=== PATIENT | female | born 1960 | race Caucasian/White ===

== ENCOUNTER 2017-05-17 18:17 | Emergency (ER) | payer MEDICARE ==
[2017-05-17 18:56] LABS: #Eosinphils 0.6 thou/uL (0.0-0.7); #Lymphocytes 1.8 thou/uL (1.20-3.40); #Monocytes 1.2 thou/uL (0.11-0.59); %Basophils 0.5 % (0.0-1.0); %Eosinophils 5.6 % (0.0-10.0); %Lymphocytes 17.2 % (21.0-51.0); %Monocytes 10.8 % (0.0-10.0); %Neutrophils 65.9 % (42.0-75.0); Hemoglobin 14.1 g/dL (12.0-16.0); Mean Corpuscular HGB CONC 32.1 g/dL (32.0-36.0); Mean Corpuscular Hemoglobin 29.9 pg (27.0-31.0); Mean Corpuscular Volume 93.1 fl (81.0-99.0); Mean Platelet Volume 6.6 fL (7.4-10.4); Platelet Count 254 thou/uL (130-400); RBC Distribution Width 12.3 % (11.5-14.5); Red Blood Cell (RBC) Count 4.71 mill/uL (4.20-5.40); White Blood Cell (WBC) Count 10.6 thou/uL (4.8-10.8)
--- NOTE | 2017-05-17 19:04 | RAD ---
PA CHEST: 05/17/17 HISTORY: Chest pain. COMPARISON: 08/14/15. The lungs are clear. Vascular markings are normal. Heart and mediastinum unremarkable. Mckeon typ e rods with thoracic scoliosis again noted. IMPRESSION: No acute abnormality. POS: [facility]
[2017-05-17 19:17] LABS: ALT (SGPT) 18 U/L (8-55); AST (SGOT) 33 U/L (5-34); Albumin 3.8 g/dL (3.5-5.0); Alkaline Phosphatase 146 U/L (40-150); Anion Gap 12 mmol/L (10-20); BUN (Urea Nitrogen) 15 mg/dL (9.8-20.1); Bilirubin, Total 0.6 mg/dL (0.2-1.2); Calc. Creatinine Clearance 0 mL/min (70-130); Calcium 9.4 mg/dL (7.8-10.44); Carbon Dioxide 27 mmol/L (22-29); Chloride 104 mmol/L (98-107); Estimated GFR-MDRD 73; Globulin 2.8 g/dL (2.4-3.5); Glucose 100 mg/dL (70-105); Potassium 4.5 mmol/L (3.5-5.1); Protein, Total 6.6 g/dL (6.0-8.3); Sodium 138 mmol/L (136-145)
[2017-05-17 19:20] LABS: CKMB 0.3 ng/mL (0-6.6); Troponin I Less than 0.010 ng/mL (< 0.028)
== END 2017-05-17 20:19 | disposition home or self-care (01) ==
LOC: ERS 18:17
DX: R07.89 Other chest pain (principal); M32.9 Systemic lupus erythematosus, unspecified; I25.2 Old myocardial infarction; I25.10 Atherosclerotic heart disease of native coronary artery without angina pectoris; F41.9 Anxiety disorder, unspecified; Z79.82 Long term (current) use of aspirin; Z79.899 Other long term (current) drug therapy
CPT/HCPCS: 36415; 71045; 80053; 82553; 84484; 85025; 93005

== ENCOUNTER 2017-05-22 19:08 | Inpatient (IN) | payer MEDICARE ==
[2017-05-22] MEDS ORDERED: Ondansetron HCl/PF 4 MG/2 ML Vial ONE (20:15)
[2017-05-22 20:20] LABS: Hemoglobin 11.4 g/dL (12.0-16.0); Mean Corpuscular HGB CONC 32.5 g/dL (32.0-36.0); Mean Corpuscular Hemoglobin 29.8 pg (27.0-31.0); Mean Corpuscular Volume 91.6 fl (81.0-99.0); Mean Platelet Volume 6.1 fL (7.4-10.4); Platelet Count 181 thou/uL (130-400); RBC Distribution Width 12.1 % (11.5-14.5); Red Blood Cell (RBC) Count 3.83 mill/uL (4.20-5.40); White Blood Cell (WBC) Count 20.9 thou/uL (4.8-10.8)
[2017-05-22 20:28] LABS: INR-International Normal Ratio 1.4
[2017-05-22 20:35] LABS: Band 13 % (5-11); Lymphocytes 3 % (21-51); MDiff Complete? YES; Monocytes 2 % (0-10); Neutrophil 81 % (42-75); PLT Morphology Comment Appears Adequate; Polychromasia SLIGHT = 2-3 cells (100X) (0-2/hpf); Toxic Granulation SLIGHT; Vacuoles SLIGHT
[2017-05-22 20:47] LABS: ALT (SGPT) 81 U/L (8-55); AST (SGOT) 113 U/L (5-34); Albumin 3.2 g/dL (3.5-5.0); Alkaline Phosphatase 190 U/L (40-150); Anion Gap 9 mmol/L (10-20); BUN (Urea Nitrogen) 21 mg/dL (9.8-20.1); Bilirubin, Total 1.7 mg/dL (0.2-1.2); Calc. Creatinine Clearance 0 mL/min (70-130); Calcium 9.1 mg/dL (7.8-10.44); Carbon Dioxide 28 mmol/L (22-29); Chloride 104 mmol/L (98-107); Estimated GFR-MDRD 83; Globulin 2.9 g/dL (2.4-3.5); Glucose 124 mg/dL (70-105); Lipase 15 U/L (8-78); Potassium 3.6 mmol/L (3.5-5.1); Protein, Total 6.1 g/dL (6.0-8.3); Sodium 137 mmol/L (136-145)
--- NOTE | 2017-05-22 21:14 | CT ---
NONCONTRAST CT ABDOMEN AND PELVIS 05/22/17 HISTORY: Back pain. Patient recently diagnosed with kidney stones. Patient tripped over a dog at 2 a.m. today and has been on the floor since that time. COMPARISON: PET CT exam on 09/12/14. FINDINGS: There is incomplete visualization of a wedge shaped parenchymal density at the posterolateral left palmer ng base which could be related to atelectasis or focal area of pneumonia. Right lung base is clear. Postsurgical changes of the thoracolumbar spine are noted with a right sided karin transfixing the thor acic spine and an additional karin transfixing the thoracolumbar spine. Post cholecystectomy changes are noted. The liver, spleen, pancreas, bilateral adrenal glands, kidneys, and urinary bladder demonstrate a daryl ssly normal nonenhanced CT appearance. Lack of intravenous contrast does limit sensitivity for evalua tion of the parenchymal organs. No renal or ureteral calculi are seen bilaterally and there is no hydronephrosis. Calcifications are seen adjacent to the base of the urinary bladder which were also present on the prior study and are m ost consistent with phleboliths. There is evidence of hysterectomy. Minimal vascular calcifications are seen in within the iliac arteries bilaterally. The appendix is visualized and gas filled and normal in caliber. There has been no other interval change from the PET CT scan examination. IMPRESSION: 1. Incomplete visualization of wedge shaped parenchymal changes at the left lung base which may be related to either atelectasis or possibly pneumonia. Followup to resolution is recommended. 2. No acute findings are seen on this nonenhanced CT scan of the abdomen and pelvis. 3. No renal or ureteral calculi are seen bilaterally. 4. Postsurgical changes thoracolumbar spine with prominent S-shaped scoliotic curvature of the t horacolumbar spine. 5. Hysterectomy and cholecystectomy. POS: [facility]
[2017-05-22] MEDS ORDERED: Ketorolac Tromethamine 30 MG/ML VIAL ONE (21:35)
[2017-05-22 21:44] LABS: Bilirubin Small (Negative); Blood, Urine Large (Negative); Clarity CLOUDY (Clear); Glucose, Urine (Dipstick) Negative (Negative); Leukocyte Negative (Negative); Nitrite Negative (Negative); Protein, Urine (Dipstick) 30 mg/dL (Neg-Trace); Specific Gravity, Urine 1.026 (1.002-1.036); pH, Urine 5.5 (5.0-9.0)
[2017-05-22 21:49] LABS: Bacteria/HPF None Seen HPF (None Seen); Hyaline Casts/LPF 4-6 HYALINE CAST LPF (0-3 Hyaline); Pathc Cast-AUWi Flag 0.94 (0-2.49); Squamous Epithelial 0-3 HPF (0-3); WBC/HPF 0-3 HPF (0-3)
--- NOTE | 2017-05-22 23:21 | RAD ---
PORTABLE AP CHEST X-RAY 05/22/17 HISTORY: Several week history of back pain. COMPARISON: 05/17/17. FINDINGS: There is right convexed scoliosis of the thoracic spine. Posterior rods again transfix the thoracic s pine. The cardiac silhouette is magnified by projection but is at the upper limits of normal in size. Coronary artery stent overlies the left aspect of the cardiac silhouette. Pulmonary vasculature is w ithin normal limits. There is linear and patchy densities at the left lung base which could be relate d to focal area of pneumonitis/pneumonia. Right lung is clear. There is no other interval change when compared to the prior exam. There is also a prior chest x-ray obtained on 05/17/17 and the linear and patchy densities at the left lung base were not seen on that exam. No other interval change. IMPRESSION: Patchy and linear densities at the left lung base which may be related to either atelectasis or devel oping pneumonia. Followup to resolution is recommended. POS: [facility]
[2017-05-22] MEDS ORDERED: Azithromycin 500 MG in Sodium Chloride 0.9% 250 ML 250 ML IVPB SCH (23:45)
[2017-05-22] MEDS ORDERED: Norepinephrine 8 MG/0.9% NS 250 ML ONE (23:56)
[2017-05-23] MEDS ORDERED: Acetaminophen 325 MG TAB PO PRN ×2 (01:34→09:13)
[2017-05-23] MEDS ORDERED: Ondansetron ODT 4 MG TAB SL PRN (01:34)
[2017-05-23] MEDS ORDERED: Ondansetron HCl/PF 4 MG/2 ML Vial IVP PRN ×2 (01:34→09:19)
[2017-05-23 01:52] VITALS: BMI 26.2
[2017-05-23] MEDS ORDERED: Norepinephrine 8 MG in Sodium Chloride 0.9% 250 ML 242 ML IVPB PRN (02:48)
[2017-05-23] MEDS: Sodium Chloride 0.9% 1,000 ML IV SCH ×4 (02:52→21:10)
--- NOTE | 2017-05-23 08:09 | PRG ---
DATE OF SERVICE: 05/23/2017 Ms. Garcia is a pleasant patient who was seen recently by Dr. Sparrow where she was treated for an uppe r respiratory infection with Rocephin shot, steroids shot, and Levaquin. The reason she came to the hospital was because she started having back pain. CT of the chest revealed she had pneumonia. For this reason, she is admitted for further evaluation and treatment. Full H and P to follow.
--- NOTE | 2017-05-23 08:34 | RAD ---
PORTABLE CHEST: History: Central line placement. Comparison: 05-22-17 FINDINGS: Portable upright chest demonstrates interval placement of right sided central venous catheter with th e distal tip in the SVC/right atrial junction. Heart is enlarged. The pulmonary vessels are normal. C ostophrenic angles are clear. No masses or consolidation. No pneumothorax. Stable scoliosis and Yobani karin placement. IMPRESSION: Interval placement of right sided central venous catheter with the distal tip in the SVC/right atrial junction. No pneumothorax. POS: [facility]
[2017-05-23] MEDS: Albuterol Sulfate 2.5 mg/0.5 ml Neb NEB SCH ×4 (10:26→22:14)
[2017-05-23] MEDS ORDERED: VANCOMYCIN IVPB PRN (11:11)
[2017-05-23] MEDS ORDERED: Vancomycin HCl 1.5 GM in Sodium Chloride 0.9% 250 ML 300 ML IVPB SCH (11:15)
--- NOTE | 2017-05-23 11:45 | CON ---
DATE OF CONSULTATION: 05/23/2017 SERVICE: Pulmonary Medicine. REASON FOR CONSULTATION: Septic shock. HISTORY OF PRESENT ILLNESS: The patient is a very pleasant 57-year-old white female with past medical history significant for an unfortunate series of events. She was affected by the influenza virus. Roughly a week into that illness, she started feeling a little bit better, but started having increasing fevers, chills, cough, and congestion once again. She presented to her primary care physician and was given a course of antibiotics. This was ineffective. She continued to get sicker and presented to the emergency department. Ultimately, she had fever, chills, cough, bringing up yellow sputum. She had no nausea or vomiting. Otherwise, she was in her usual state of health. She got resuscitated with fluid, but this did not correct her blood pressure issues. A central line was placed and she was placed on Levophed. She was put in the ICU overnight on azithromycin. She is feeling a little bit better. PAST MEDICAL HISTORY: 1. Anxiety disorder. 2. Hypothyroidism. 3. Scoliosis. PAST SURGICAL HISTORY: 1. section. 2. Hysterectomy. 3. Back surgery with hardware in place. 4. Cholecystectomy. ALLERGIES: CODEINE, LATEX, MEPERIDINE, ROCEPHIN. MEDICATIONS: List of her inpatient medications were reviewed and a couple small updates were made. SOCIAL HISTORY: Negative for alcohol, tobacco, or illicit drug use. She has no exposure to chemicals, asbestos, or tuberculosis. FAMILY HISTORY: Noncontributory. REVIEW OF SYSTEMS: General, head, ears, eyes, nose, throat, cardiovascular, respiratory, GI, , musculoskeletal, neurologic, and skin is negative except as mentioned in the HPI PHYSICAL EXAMINATION: VITAL SIGNS: Afebrile, pulse 75, respirations 14, saturation 98% on 2 liters nasal cannula. Blood pressure is 100/48 on a little bit of Levophed. HEENT: Normocephalic, atraumatic. Sclerae are white, conjunctivae pink. Oral and nasal mucosa is moist without lesions. LUNGS: Excellent air entry. There is no prolonged expiratory phase. I do not appreciate wheezing, rhonchi, or crackles presently. HEART: Normal rate, regular. ABDOMEN: Soft, nontender, nondistended. Bowel sounds are positive. MUSCULOSKELETAL: No cyanosis or clubbing. There is no pitting in the bilateral lower extremities. NEUROLOGIC: Grossly nonfocal. LABORATORY DATA: WBC 20.9, hemoglobin 11.4, platelets 181,000. Band count is 13%. INR 1.4. Basic metabolic profile is unremarkable. Her AST and ALT are marginally elevated. Alkaline phosphatase is also minimally elevated. Albumin 3.2. CK 111, lactate 1.5. Urinalysis is essentially unremarkable except for a little bit of hematuria. IMAGIN. CT of the abdomen and pelvis demonstrates incomplete visualization of wedge- shaped parenchymal change at the left lung base. It may be related to atelectasis or pneumonia. No acute findings in the abdomen or pelvis were identified. No renal calculi are present. Scoliosis was incidentally noted. The patient is post hysterectomy and cholecystectomy. 2. Chest x-ray demonstrates placement of right IJ central venous catheter with the tip terminating in an expected location. There is no acute cardiopulmonary abnormality otherwise identified. Mckeon rods are noted. ASSESSMENT: 1. Community-acquired pneumonia. 2. Acute hypoxic respiratory failure. 3. Septic shock. PLAN: I am going to broaden out our coverage to include Staph aureus for the time being. We will get sputum to see if this generates anything of note. The strep and legionella urine antigens will be collected Pulmonary Critical Care will continue to follow while she remains in this location, but from my perspective, once she is weaned off of the Levophed, she will be stable to transition to the medical unit. 70 minutes have been devoted to this patient in various activities. I personally reviewed all imaging studies and laboratory data noted within this document. For at least half of this time, I was interacting with the patient at the bedside or coordinating care with the care team. For the remainder of the time I was immediately available to the patient in the hospital unit. HUSSEIN
--- NOTE | 2017-05-23 15:13 | HP ---
This is Chen Puga, TOMI-Millicent, dictating for Armin Sparrow M.D. REASON FOR ADMISSION: Back pain. HISTORY OF PRESENT ILLNESS: This is a pleasant female who was recently seen in the clinic where she was treated for UTI with antibiotics, presents now with increasing back pain. She denied any other s igns and symptoms and had a CT of the chest which did show lower left pneumonia. Unfortunately, in the ER, she was septic with a blood pressure in the 80s. She was given fluid with no relief and unfortunately had a central line placed and then they started Levophed. She was transf erred to ICU. Currently, she is awake, alert, and oriented to person, place and time. She denies an y chest or arm pain. She also denies any PND, orthopnea, or palpitations. PAST MEDICAL HISTORY: 1. Anxiety. 2. Hypothyroidism. 3. Depression. 4. Hyperlipidemia. 5. Chronic sinusitis. 6. Scoliosis. 7. Osteoporosis. 8. Lupus. PAST SURGICAL HISTORY: 1. Cholecystectomy. 2. Partial thyroidectomy. 3. Tonsillectomy. 4. Back surgery in the past. 5. History of . 6. Hysterectomy. ALLERGIES: BACTRIM, LATEX, SULFA, ____, MACROBID, CODEINE, ROCEPHIN. MEDICATIONS: 1. Prozac 60 mg every day. 2. Xanax 2 mg t.i.d. 3. Synthroid 150 mcg every day. 4. Aspirin 81 mg every day. 5. Flexeril 10 mg at bedtime p.r.n. 6. Multivitamin every day. 7. Metoprolol ER 25 mg every day. 8. Atelvia 35 mg every week. 9. p.r.n. 10. Crestor 40 mg every day. 11. Verenice 180 mg every day. 12. Prilosec 40 mg every day. 13. Hydrocodone p.r.n. SOCIAL HISTORY: She does not smoke, she does not drink alcohol. She is a . FAMILY HISTORY: Noncontributory. REVIEW OF SYSTEMS: General: No weight gain or weight loss. Admits to weakness, fatigue. No fever or chills. HEENT: No diplopia, amaurosis fugax, tinnitus, sore throat, or hoarseness. Cardiovascul ar: No chest or arm pain, does admit to back pain. Pulmonary: No PE, cough, hemoptysis. Gastroint estinal: No GI bleed, constipation, diarrhea. Genitourinary: No dysuria, polyuria. Endocrine: No polyphagia, polydipsia, or heat or cold intolerance. Musculoskeletal: Admits to arthralgias. No l upus or myopathy. Neurologic: No history of TIA or seizure. All systems are negative. PHYSICAL EXAMINATION: GENERAL: Pleasant female, who is still on Levophed. VITAL SIGNS: Blood pressure in the 90s now. She is afebrile, heart rate is 80. HEENT: PERRL. Sclerae clear, not icteric with no arcus senilis or xanthelasma. NECK: Supple with no increased JVP or carotid bruit. Carotid had good upstroke with no thyromegaly. COR: Regular rate and rhythm, but tachycardic. CHEST: Symmetrical. Clear to auscultation and percussion upper lobes, diminished lateral lobes. ABDOMEN: Soft, nontender with normoactive bowel sounds. No bruit or organomegaly. EXTREMITIES: No edema or cyanosis. She had palpable pedal pulses. SKIN: There is no evidence of ulcers, lesion, or rash. NEUROLOGIC: She is awake, alert, and oriented to person, place, and time. LABORATORY DATA: White blood cell count is elevated. Her CT scan showed left lower lobe pneumonia. ASSESSMENT: 1. Pneumonia. 2. Sepsis secondary to above. 3. Hypotension. 4. Anxiety disorder. 5. Hypothyroidism. 6. Recent urinary tract infection. PLAN: 1. The patient will be continued on Levophed. We will wean off with her systolic blood pressure gre ater than 90. We will continue IV antibiotics. We will follow up also with a CBC, CMP, and chest x- ray in the morning. 2. We will start her on diet and hold off on resuming most of her medications. The patient verbaliz ed understanding and all questions answered to satisfaction.
[2017-05-23 15:33] LABS: Legionella Urinary Ag Negative (Negative); Strep pneumo Urine Ag NEGATIVE (NEGATIVE)
[2017-05-23] MEDS: Vancomycin HCl 1 GM in Premix Bag 1 BAG IVPB SCH (22:52)
[2017-05-23] MEDS: Azithromycin 500 MG in Sodium Chloride 0.9% 250 ML 250 ML IVPB SCH (22:54)
[2017-05-24] MEDS: Albuterol Sulfate 2.5 mg/0.5 ml Neb NEB SCH ×6 (02:38→23:15)
[2017-05-24 04:45] LABS: #Eosinphils 0.1 thou/uL (0.0-0.7); #Lymphocytes 0.8 thou/uL (1.20-3.40); #Monocytes 0.6 thou/uL (0.11-0.59); #Neutrophils 10.5 thou/uL (1.40-6.50); %Eosinophils 0.7 % (0.0-10.0); %Lymphocytes 6.3 % (21.0-51.0); %Monocytes 5.2 % (0.0-10.0); %Neutrophils 87.8 % (42.0-75.0); Hemoglobin 9.2 g/dL (12.0-16.0); Mean Corpuscular HGB CONC 32.9 g/dL (32.0-36.0); Mean Corpuscular Hemoglobin 30.5 pg (27.0-31.0); Mean Corpuscular Volume 92.8 fl (81.0-99.0); Mean Platelet Volume 6.4 fL (7.4-10.4); Platelet Count 165 thou/uL (130-400); RBC Distribution Width 12.1 % (11.5-14.5); Red Blood Cell (RBC) Count 3.02 mill/uL (4.20-5.40); White Blood Cell (WBC) Count 11.9 thou/uL (4.8-10.8)
[2017-05-24 05:03] LABS: ALT (SGPT) 46 U/L (8-55); AST (SGOT) 26 U/L (5-34); Albumin 2.5 g/dL (3.5-5.0); Alkaline Phosphatase 161 U/L (40-150); Anion Gap 8 mmol/L (10-20); BUN (Urea Nitrogen) 8 mg/dL (9.8-20.1); Bilirubin, Total 0.6 mg/dL (0.2-1.2); Calc. Creatinine Clearance 114 mL/min (70-130); Calcium 8.3 mg/dL (7.8-10.44); Carbon Dioxide 26 mmol/L (22-29); Chloride 110 mmol/L (98-107); Estimated GFR-MDRD Greater than 90; Globulin 2.4 g/dL (2.4-3.5); Glucose 99 mg/dL (70-105); Potassium 3.2 mmol/L (3.5-5.1); Protein, Total 4.9 g/dL (6.0-8.3); Sodium 141 mmol/L (136-145)
[2017-05-24] MEDS: Levothyroxine 150 MCG TAB PO SCH (06:32)
[2017-05-24] MEDS ORDERED: Potassium Chloride 20 MEQ TAB PO SCH (08:15)
[2017-05-24] MEDS ORDERED: HYDROcodone/Acetaminophen 5/325 mg Tablet PO PRN (08:32)
--- NOTE | 2017-05-24 08:41 | RAD ---
SINGLE VIEW OF THE CHEST: COMPARISON: 05/23/17. HISTORY: Respiratory distress. FINDINGS: A single view of the chest shows an enlarged but stable cardiomediastinal silhouette. The central ve nous catheter is unchanged in position. Yobani rods are seen. Scoliotic curvature of the spine is present. There is no evidence of consolidation, mass, or pleural effusion. IMPRESSION: Stable exam. POS: [facility]
[2017-05-24] MEDS: HYDROcodone/Acetaminophen 5/325 mg Tablet PO PRN ×2 (08:48→15:56)
[2017-05-24] MEDS: FLUoxetine HCl 20 MG CAP PO SCH (08:51)
--- NOTE | 2017-05-24 09:55 | RAD ---
RIGHT HIP 2 VIEWS: HISTORY: Right hip pain. FINDINGS/IMPRESSION: There are degenerative changes. No fracture or dislocation or bony destruction is identified. POS: [facility]
--- NOTE | 2017-05-24 10:15 | RAD ---
LEFT HIP 2 VIEWS: HISTORY: Left hip pain. FINDINGS/IMPRESSION: No fracture, dislocation, or bony destruction is identified. POS: [facility]
--- NOTE | 2017-05-24 10:16 | RAD ---
THREE VIEWS LEFT WRIST: HISTORY: Left wrist pain. FINDINGS: AP, lateral, and oblique views left wrist are obtained. Images demonstrate osteoarthritic changes seen in the 1st carpometacarpal joint. No evidence of acute left wrist fractures, subluxations, or bony lesions seen. IMPRESSION: Osteoarthritis 1st left carpometacarpal joint. No acute bony lesion seen. POS: [facility]
--- NOTE | 2017-05-24 10:24 | RAD ---
AP AND LATERAL AND PELVIC INLET VIEWS SACRUM AND COCCYX: FINDINGS: AP, lateral, and pelvic inlet views sacrum and coccyx were obtained. There is some mild anterior angulation of the coccyx. This may be congenital and may represent anter ior displacement of the coccyx with a fracture of indeterminate age. The patient has had a lumbar fusion using posterior Yobani-type rods. This extends all the way t o the L4-5 level. No evidence of definite displaced sacral fracture is seen. If there is concern, however, for sacral pathology, correlation with bone scan or MRI may be of use t o further characterize the sacrum and SI joints. IMPRESSION: Slight anterior displacement of the coccyx, indeterminate etiology and age. POS: [facility]
[2017-05-24] MEDS: Sodium Chloride 0.9% 1,000 ML IV SCH (10:56)
[2017-05-24] MEDS: Vancomycin HCl 1 GM in Premix Bag 1 BAG IVPB SCH ×2 (10:57→23:41)
[2017-05-24] MEDS ORDERED: Albuterol Sulfate 1.25 MG/3 ML NEB ONE (18:48)
[2017-05-24] MEDS: Azithromycin 500 MG in Sodium Chloride 0.9% 250 ML 250 ML IVPB SCH (22:24)
[2017-05-24 23:18] LABS: Vancomycin, Trough 14.2 ug/mL
[2017-05-25] MEDS: Albuterol Sulfate 2.5 mg/0.5 ml Neb NEB SCH ×6 (02:14→22:01)
[2017-05-25] MEDS: Levothyroxine 150 MCG TAB PO SCH (05:11)
[2017-05-25] MEDS ORDERED: Albuterol Sulfate 2.5 mg/3 ml Neb ONE ×3 (07:42→16:16)
--- NOTE | 2017-05-25 07:55 | RAD ---
PORTABLE CHEST 1 VIEW: Date: 05/25/17 Time: 0712 hours HISTORY: Chest pain. FINDINGS/IMPRESSION: Comparison made to exam from previous day. No significant interval change is seen. POS: [facility]
[2017-05-25 08:04] LABS: #Eosinphils 0.4 thou/uL (0.0-0.7); #Lymphocytes 1.1 thou/uL (1.20-3.40); #Monocytes 0.5 thou/uL (0.11-0.59); #Neutrophils 5.8 thou/uL (1.40-6.50); %Basophils 0.2 % (0.0-1.0); %Eosinophils 5.5 % (0.0-10.0); %Lymphocytes 14.5 % (21.0-51.0); %Monocytes 6.4 % (0.0-10.0); %Neutrophils 73.5 % (42.0-75.0); Hemoglobin 10.1 g/dL (12.0-16.0); Mean Corpuscular HGB CONC 32.8 g/dL (32.0-36.0); Mean Corpuscular Hemoglobin 30.6 pg (27.0-31.0); Mean Corpuscular Volume 93.2 fl (81.0-99.0); Mean Platelet Volume 6.2 fL (7.4-10.4); Platelet Count 214 thou/uL (130-400); RBC Distribution Width 12.1 % (11.5-14.5); Red Blood Cell (RBC) Count 3.29 mill/uL (4.20-5.40); White Blood Cell (WBC) Count 7.8 thou/uL (4.8-10.8)
[2017-05-25 08:30] LABS: ALT (SGPT) 33 U/L (8-55); AST (SGOT) 15 U/L (5-34); Albumin 2.6 g/dL (3.5-5.0); Alkaline Phosphatase 152 U/L (40-150); Anion Gap 10 mmol/L (10-20); BUN (Urea Nitrogen) Less than 4 mg/dL (9.8-20.1); Bilirubin, Total 0.4 mg/dL (0.2-1.2); Calc. Creatinine Clearance 104 mL/min (70-130); Calcium 8.6 mg/dL (7.8-10.44); Carbon Dioxide 27 mmol/L (22-29); Chloride 105 mmol/L (98-107); Estimated GFR-MDRD Greater than 90; Globulin 2.5 g/dL (2.4-3.5); Glucose 90 mg/dL (70-105); Potassium 3.2 mmol/L (3.5-5.1); Protein, Total 5.1 g/dL (6.0-8.3); Sodium 139 mmol/L (136-145)
[2017-05-25] MEDS: FLUoxetine HCl 20 MG CAP PO SCH (08:35)
[2017-05-25] MEDS: HYDROcodone/Acetaminophen 5/325 mg Tablet PO PRN ×2 (08:35→15:55)
[2017-05-25] MEDS: Azithromycin 250 MG TAB PO SCH (08:46)
--- NOTE | 2017-05-25 11:48 | PRG ---
DATE OF SERVICE: 05/24/2017 SERVICE: Pulmonary Medicine. INTERVAL HISTORY: The patient is doing fine from a respiratory standpoint. She is off Levophed. Brian toth has multiple aches and pains. She notes pain in her neck, back, bilateral hands, wrists, and ankle . There is being worked up by the primary service. Otherwise, her inflammatory profile has dramatic ally improved. She is breathing comfortably, not coughing up any crud this time. OBJECTIVE: VITAL SIGNS: Afebrile, pulse 86, blood pressure 96/51, respirations 16, saturation 94% on room air. GENERAL: The patient is awake, alert, in no apparent distress. LUNGS: Decent air entry. Some rhonchi are present. No prolonged expiratory phase, wheezing or crac kles are identified. HEART: Normal rate, regular. ABDOMEN: Soft, nontender, nondistended. Bowel sounds are positive. MUSCULOSKELETAL: No cyanosis or clubbing. No pitting in the bilateral lower extremities. NEUROLOGIC: Grossly nonfocal. LABORATORY DATA: WBC 11.9, hemoglobin 9.2, platelets 165,000. Chloride 110, potassium 3.2. Basic m etabolic profile and liver function studies are otherwise unremarkable except for an alkaline phospha tase of 161, which is down trending. Urine strep and legionella urine antigens are negative. Blood cultures x2 and urine culture remain negative. IMAGING: Chest x-ray demonstrates stable exam. No evidence of consolidation, mass or pleural effusi on is identified on this film. ASSESSMENT: 1. Community-acquired pneumonia. 2. Acute hypoxic respiratory failure. 3. Septic shock, resolved. PLAN: We will continue empiric antibiotics. Daily chest x-ray will be discontinued. From my perspe ctive, she is stable for transition out of the ICU. I will continue to follow for one additional day to make certain that she does not develop any increasing hypoxic respiratory failure.
[2017-05-25] MEDS ORDERED: Potassium Chloride 20 MEQ TAB PO SCH (20:30)
[2017-05-25] MEDS: ALPRAZolam 0.5 MG TAB PO PRN (20:31)
--- NOTE | 2017-05-25 20:47 | PRG ---
DATE OF SERVICE: 05/25/2017 SERVICE: Pulmonary Medicine. INTERVAL HISTORY: The patient is doing great from a respiratory standpoint. She is on room air. She denies any cough or shortness of breath. She does not bringing up any sputum any longer. Otherwise, she remains in stable condition. She has got multiple orthopedic complaints, but otherwise, there have been no acute issues. PHYSICAL EXAMINATION: VITAL SIGNS: Afebrile, pulse 76, blood pressure 112/57, respirations 16, saturation 95% on room air. GENERAL: Patient is awake, alert, in no distress. LUNGS: Excellent air entry with no prolonged expiratory phase, wheezing, or crackles. HEART: Normal rate, regular. ABDOMEN: Soft, nontender, nondistended. Bowel sounds are positive. MUSCULOSKELETAL: No cyanosis or clubbing. No pitting in the bilateral lower extremities. NEUROLOGIC: Grossly nonfocal. LABORATORY DATA: WBC 7.8, hemoglobin 10.1, platelets 214,000. Potassium 3.2. Liver function studies were unremarkable except for downtrending alkaline phosphatase. Blood cultures x2 and urine culture were negative. IMAGIN. Chest x-ray demonstrates no significant interval change. 2. Wrist x-ray demonstrates osteoarthritis, but no acute bony lesion. 3. Sacrum and coccyx x-ray demonstrates anterior displacement of the coccyx, indeterminate etiology and age. 4. Hip x-ray demonstrates no fracture or dislocation. ASSESSMENT: 1. Community-acquired pneumonia, possible. 2. Acute hypoxic respiratory failure. 3. Septic shock, resolved. PLAN: To be honest with you, there is no true infiltrate on the chest x-ray. This was really more of a clinical diagnosis based on purulent sputum production. Antibiotics can be limited to a total duration of 5 days directed at lung issues. At this point, the patient has no further requirement for inpatient pulmonary critical care opinion, and will sign off. Please call with additional questions or concerns moving forward. Potassium will be replaced. MTDD
[2017-05-26] MEDS: Albuterol Sulfate 2.5 mg/0.5 ml Neb NEB SCH ×6 (01:53→22:01)
[2017-05-26] MEDS: HYDROcodone/Acetaminophen 5/325 mg Tablet PO PRN ×3 (03:13→20:16)
[2017-05-26] MEDS: Levothyroxine 150 MCG TAB PO SCH (05:09)
[2017-05-26 05:30] LABS: #Eosinphils 0.4 thou/uL (0.0-0.7); #Lymphocytes 1.1 thou/uL (1.20-3.40); #Monocytes 0.5 thou/uL (0.11-0.59); %Basophils 0.4 % (0.0-1.0); %Eosinophils 6.9 % (0.0-10.0); %Lymphocytes 17.9 % (21.0-51.0); %Monocytes 8.5 % (0.0-10.0); %Neutrophils 66.3 % (42.0-75.0); Hemoglobin 10.9 g/dL (12.0-16.0); Mean Corpuscular Volume 93.5 fl (81.0-99.0); Mean Platelet Volume 6.3 fL (7.4-10.4); Platelet Count 248 thou/uL (130-400); RBC Distribution Width 12.3 % (11.5-14.5); Red Blood Cell (RBC) Count 3.62 mill/uL (4.20-5.40)
[2017-05-26 05:42] LABS: Anion Gap 13 mmol/L (10-20); BUN (Urea Nitrogen) Less than 4 mg/dL (9.8-20.1); Calc. Creatinine Clearance 97 mL/min (70-130); Calcium 9.1 mg/dL (7.8-10.44); Carbon Dioxide 23 mmol/L (22-29); Chloride 107 mmol/L (98-107); Estimated GFR-MDRD 90; Glucose 97 mg/dL (70-105); Potassium 4.1 mmol/L (3.5-5.1); Sodium 139 mmol/L (136-145)
[2017-05-26] MEDS: FLUoxetine HCl 20 MG CAP PO SCH (09:09)
[2017-05-26] MEDS: Azithromycin 250 MG TAB PO SCH (09:26)
[2017-05-26] MEDS: ALPRAZolam 0.5 MG TAB PO PRN (10:35)
[2017-05-26] MEDS: ALPRAZolam 1 MG TAB PO SCH (20:15)
[2017-05-27] MEDS: Albuterol Sulfate 2.5 mg/0.5 ml Neb NEB SCH ×3 (01:55→10:45)
[2017-05-27] MEDS: Levothyroxine 150 MCG TAB PO SCH (06:10)
[2017-05-27] MEDS: ALPRAZolam 1 MG TAB PO SCH (09:38)
[2017-05-27] MEDS: FLUoxetine HCl 20 MG CAP PO SCH (09:38)
[2017-05-27] MEDS: Azithromycin 250 MG TAB PO SCH (09:38)
[2017-05-27 13:38] VITALS: BP 149/84; TEMP 98.2
--- NOTE | 2017-05-27 19:03 | DIS ---
DATE OF ADMISSION: 05/22/2017 DATE OF DISCHARGE: 05/27/2017 CHIEF COMPLAINT ON ADMISSION: Pneumonia with sepsis and hypotension. History of present illness has been dictated. I will resume from there with hospital course. HOSPITAL COURSE: The patient was placed in the ICU where Levophed was used to keep her blood pressur e up. She had 20,000 white count. There was currently no fever over the first 24 hours. She respon ded quite well to IV fluids and was able to be weaned off the Levophed and subsequently transferred t o a telemetry bed for further monitoring. During this time, she had diffuse pain arise from her fall . These required x-rays of her back, hips, wrist, and coccyx. Unfortunately, there was noted a frac ture of the coccyx, which she has fractured in the past. Pain medication was provided for this. Ant ibiotics were continued and further blood count showed WBCs going from 20.9 to 11.9 by 05/24/2017. D uring hospitalization, she remained afebrile except for when the temperature gotten up to 100.8 on , it was at this point when Zithromax was added to her IV machine so has to cover for atypica l infection since her pneumonia was community acquired. The rest of her hospitalization, she was not ed to remain afebrile. Her blood pressures remained stable and on telemetry. She continued to impro ve with each day; however, she had significant pain from her tailbone and from the left wrist while t he x-rays of the left wrist currently are negative, but if they remains in pain, we will get a bone s can or re-x-ray them for an occult fracture. Chest x-ray showed significant improvement quickly with followup x-rays failing to note the left lower lobe infiltrate noted on CT on admission and she cont inued to do well. She was transferred out of the ICU as mentioned previously on 05/24/2017. On 05/10, continued to do well except for the aforementioned spike in fever in addition to Zithromax. By 05/26/2017, again continued to do well except for persistent pain and since she lived alone, she h ad to be able to get herself to the restroom and back and feed herself, so she was kept an additional day. She was ready for discharge by 05/27/2017. DISCHARGE DIAGNOSES: Community-acquired pneumonia with acute hypoxic respiratory failure and septic shock - resolved, fractured coccyx, contusion to left wrist. DISCHARGE MEDICATIONS: She is discharged home to continue on her Levaquin 7 additional days. Contin ue the Zithromax 3 additional days. She will take tramadol 50 mg 2 tabs q.6 hours p.r.n. pain. She is to follow up with Dr. Sparrow in 5-7 days for reassessment. She will be discharged home in stab le condition. The time required to examine the chart, then evaluate the patient, counseled the patient, answered al l of her questions and then prepare for discharge as well as dictation came to 40 minutes.
--- NOTE | 2017-06-23 14:21 | EKG ---
Test Reason : Blood Pressure : / mmHG Vent. Rate : 080 BPM Atrial Rate : 080 BPM P-R Int : 148 ms QRS Dur : 106 ms QT Int : 392 ms P-R-T Axes : 061 007 010 degrees QTc Int : 452 ms Normal sinus rhythm Low voltage QRS Incomplete right bundle branch block Nonspecific T wave abnormality Abnormal ECG Confirmed by JUNI MORE M.D. ([id number]), assistant film editor BECKY NASH ([id number]) on 06/23/2017 2:21:14 PM Referred By: Confirmed By:JUNI MORE M.D.
== END 2017-05-27 13:52 | disposition home or self-care (01) | DRG 871 ==
LOC: ERS 19:08 → CCU 05-23 01:15 → IMCU/EMU 05-23 01:16 → CCU 05-23 01:29 → 2NO 05-24 10:28 → T4-B 05-26 17:05
PROVIDERS: ADMIT Specialist; ATTEND Specialist
PROC: 02HV33Z Insertion of Infusion Device into Superior Vena Cava, Percutaneous Approach (ICD-10-PCS; principal; 2017-05-24)
PROC: B518YZA Fluoroscopy of Superior Vena Cava using Other Contrast, Guidance (ICD-10-PCS; 2017-05-24)
DX: A41.9 Sepsis, unspecified organism (principal); J18.9 Pneumonia, unspecified organism; J96.01 Acute respiratory failure with hypoxia; R65.21 Severe sepsis with septic shock; F41.9 Anxiety disorder, unspecified; E03.9 Hypothyroidism, unspecified; J32.9 Chronic sinusitis, unspecified; M81.0 Age-related osteoporosis without current pathological fracture
CPT/HCPCS: 36415; 36556; 51701; 71045; 72220; 74176; 80048; 80053; 80202; 81003; 81015; 82550; 83605; 83690; 83880; 84443; 84484; 85025; 85610; 87040; 87086; 87899; 93005; 94640; 96361; 96365; 96375; A4216; A4353; G8978-GP-CK; G8979-GP-CI; J0456; J0696; J1885; J2270; J2405; J3370; J7050; J7611

== ENCOUNTER 2017-06-13 15:26 | Outpatient (CLI) | payer MEDICARE | END 2017-06-13 15:27 | disposition home or self-care (01) | LOC: BICRAD 15:26 | PROVIDERS: ATTEND Specialist | DX: J18.9 Pneumonia, unspecified organism (principal); R29.6 Repeated falls; M17.11 Unilateral primary osteoarthritis, right knee | CPT/HCPCS: 71046 ==

== ENCOUNTER 2017-09-06 11:02 | Outpatient (CLI) | payer MEDICARE | END 2017-09-06 11:03 | disposition home or self-care (01) | LOC: BICMAMMO 11:02 | PROVIDERS: ATTEND Specialist | DX: Z12.31 Encounter for screening mammogram for malignant neoplasm of breast (principal) | CPT/HCPCS: 77063; 77067 ==

== ENCOUNTER 2017-10-29 13:53 | Outpatient (CLI) | payer MEDICARE | END 2017-10-29 13:54 | disposition home or self-care (01) | LOC: BICMAMMO 13:53 | PROVIDERS: ATTEND Specialist | DX: M81.0 Age-related osteoporosis without current pathological fracture (principal) | CPT/HCPCS: 77080 ==

== ENCOUNTER 2018-01-15 14:51 | Emergency (ER) | payer MEDICARE ==
[2018-01-15] MEDS ORDERED: Adacel (T-DAP) 0.5 ML VIAL ONE (16:34)
[2018-01-15] MEDS ORDERED: Ketorolac Tromethamine 30 MG/ML VIAL ONE (16:34)
[2018-01-15] MEDS ORDERED: Bacitracin Zinc 1 Packet ONE (16:55)
--- NOTE | 2018-01-15 18:28 | RAD ---
LUMBAR SPINE 2 VIEWS: Date: 01/15/18 HISTORY: Injury, back pain. FINDINGS/IMPRESSION: A posterior karin is seen in the lumbar spine extending into the thoracic spine. Bones are osteopenic. No acute fracture or dislocation is seen. There is minimal anterolisthesis of L5 over S1. There is le voscoliosis of the lumbar spine. POS: [facility]
== END 2018-01-15 17:47 | disposition home or self-care (01) ==
LOC: ERS 14:51
DX: S81.811A Laceration without foreign body, right lower leg, initial encounter (principal); M54.9 Dorsalgia, unspecified; I25.2 Old myocardial infarction; I25.10 Atherosclerotic heart disease of native coronary artery without angina pectoris; F41.9 Anxiety disorder, unspecified; M81.0 Age-related osteoporosis without current pathological fracture; W18.30XA Fall on same level, unspecified, initial encounter
CPT/HCPCS: 12004; 72100; 90471; 90715; 96372; J1885

== ENCOUNTER 2018-08-02 13:30 | Outpatient (CLI) | payer MEDICARE ==
--- NOTE | 2018-08-03 13:21 | CT ---
CT RIGHT SHOULDER PERFORMED WITHOUT CONTRAST ENHANCEMENT: Date: 08/02/18 HISTORY: Right shoulder pain. FINDINGS: There are marked arthritic changes of the glenohumeral joint space. Prominent osteophytic change jennifer g the inferior articular surface of the humeral head. There is an ossified articular body within the axillary pouch measuring 14.0 mm in size. Some smaller articular bodies are seen. Some minimal calcif ication associated with the supraspinatus tendon. There are some subchondral cystic changes of the hu meral head. There is fluid within the joint space and subscapular recess. I do not appreciate any significant rotator cuff muscle atrophy. There is some moderate arthritic change of the AC joint. Mckeon rods are incidentally noted. The visualized lung patton are clear. IMPRESSION: Marked osteoarthritic changes of the glenohumeral joint space. POS: [facility]
== END 2018-08-02 13:31 | disposition home or self-care (01) ==
LOC: BICCT 13:30
PROVIDERS: ATTEND Specialist
DX: M25.511 Pain in right shoulder (principal); M19.011 Primary osteoarthritis, right shoulder

== ENCOUNTER 2018-11-15 13:34 | Outpatient (CLI) | payer MEDICARE ==
--- NOTE | 2018-11-15 15:50 | ULT ---
THYROID ULTRASOUND: Date: 11/15/18 COMPARISON: None. HISTORY: Thyroid nodules. TECHNIQUE: Multiplanar Meyer scale and color Doppler images were obtained in a thyroid ultrasound. FINDINGS: There are tiny nodules in the right thyroid lobe. The largest measures 5 mm in greatest dimension. Th carlitos nodules are well circumscribed and hypoechoic. These do not contain suspicious calcifications. IMPRESSION: Tiny right thyroid nodules. These nodules are TI-RADS Category 4 lesions but do not need further foll ow-up as they are less than 1.0 cm in size. POS: [facility]
== END 2018-11-15 13:35 | disposition home or self-care (01) ==
LOC: BICULT 13:34
PROVIDERS: ATTEND Specialist
DX: J31.2 Chronic pharyngitis (principal); R49.0 Dysphonia; E04.2 Nontoxic multinodular goiter
CPT/HCPCS: 76536

== ENCOUNTER 2018-12-29 16:08 | Emergency (ER) | payer MEDICARE ==
[~2018-12-29 16:08] MED LIST: ISOVUE-370 76%-LOCM 1 ML ONE
[2018-12-29] MEDS ORDERED: HYDROcodone/Acetaminophen 5/325 mg Tablet ONE (17:11)
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
[2018-12-29 20:09] LABS: #Basophils 0.1 thou/uL (0.0-0.2); #Eosinphils 0.2 thou/uL (0.0-0.7); #Lymphocytes 1.9 thou/uL (1.20-3.40); #Monocytes 0.6 thou/uL (0.11-0.59); #Neutrophils 4.2 thou/uL (1.40-6.50); %Basophils 0.9 % (0.0-1.0); %Eosinophils 3.1 % (0.0-10.0); %Lymphocytes 27.3 % (21.0-51.0); %Monocytes 8.6 % (0.0-10.0); %Neutrophils 60.1 % (42.0-75.0); Hemoglobin 12.2 g/dL (12.0-16.0); Mean Corpuscular HGB CONC 33.4 g/dL (32.0-36.0); Mean Corpuscular Hemoglobin 30.5 pg (27.0-31.0); Mean Corpuscular Volume 91.2 fL (78.0-98.0); Mean Platelet Volume 6.6 fL (7.4-10.4); Platelet Count 190 thou/uL (130-400); RBC Distribution Width 11.7 % (11.5-14.5); White Blood Cell (WBC) Count 6.9 thou/uL (4.8-10.8)
[2018-12-29 20:18] LABS: Bacteria/HPF None Seen HPF (None Seen); Bilirubin Negative (Negative); Blood, Urine 1+ (Negative); Clarity Clear (Clear); Glucose, Urine (Dipstick) Normal (Negative); Leukocyte 75 Leu/uL (Negative); Mucous/LPF 1+ LPF (<2+); Nitrite Negative (Negative); Protein, Urine (Dipstick) Negative (Neg-Trace); RBC/HPF 0-3 HPF (0-3); Squamous Epithelial 0-3 HPF (0-3); Urobilinogen Normal mg/dL (Less than 2)
[2018-12-29 20:47] LABS: ALT (SGPT) 16 U/L (8-55); AST (SGOT) 19 U/L (5-34); Albumin 3.6 g/dL (3.5-5.0); Alkaline Phosphatase 102 U/L (40-150); BUN (Urea Nitrogen) 13 mg/dL (9.8-20.1); Bilirubin, Total 0.3 mg/dL (0.2-1.2); Calc. Creatinine Clearance 0 mL/min (70-130); Calcium 8.3 mg/dL (7.8-10.44); Carbon Dioxide 26 mmol/L (22-29); Chloride 107 mmol/L (98-107); Estimated GFR-MDRD 74; Globulin 2.2 g/dL (2.4-3.5); Glucose 104 mg/dL (70-105); Lipase 48 U/L (8-78); Potassium 3.4 mmol/L (3.5-5.1); Protein, Total 5.8 g/dL (6.0-8.3); Sodium 139 mmol/L (136-145)
[2018-12-29 20:52] LABS: Anion Gap 9 mmol/L (10-20)
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
== END 2018-12-29 22:51 | disposition home or self-care (01) ==
LOC: ERS 16:08
DX: S32.019A Unspecified fracture of first lumbar vertebra, initial encounter for closed fracture (principal); I95.9 Hypotension, unspecified; I25.10 Atherosclerotic heart disease of native coronary artery without angina pectoris; E78.00 Pure hypercholesterolemia, unspecified; I25.2 Old myocardial infarction; F41.9 Anxiety disorder, unspecified; Z79.899 Other long term (current) drug therapy; V89.2XXA Person injured in unspecified motor-vehicle accident, traffic, initial encounter
CPT/HCPCS: 36415; 71260; 72125; 72128; 72131; 74177; 80053; 81003; 81015; 83605; 83690; 85025; 96360; 96361; Q9966

== ENCOUNTER 2019-01-02 10:42 | Outpatient (CLI) | payer MEDICARE ==
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
== END 2019-01-02 10:43 | disposition home or self-care (01) ==
LOC: TBSIIMAG 10:42
PROVIDERS: ATTEND Neurological Surgery
DX: S32.009A Unspecified fracture of unspecified lumbar vertebra, initial encounter for closed fracture (principal); M41.9 Scoliosis, unspecified; M46.96 Unspecified inflammatory spondylopathy, lumbar region
CPT/HCPCS: 72100

== ENCOUNTER 2019-02-25 13:16 | Outpatient (CLI) | payer MEDICARE ==
--- NOTE | 2019-02-25 14:08 | RAD ---
XR Lumbar Spine 2 Or 3 View History: M [age] lumbar radiculopathy Comparison: Radiograph December 2018 Findings: Similar appearance the lumbar spine with Mckeon karin placement for scoliosis. No acute f racture or malalignment. Paraspinal soft tissues are unremarkable. Impression: No further height loss of the L1 compression deformity.
== END 2019-02-25 13:17 | disposition home or self-care (01) ==
LOC: TBSIIMAG 13:16
PROVIDERS: ATTEND Neurological Surgery
DX: M54.16 Radiculopathy, lumbar region (principal)
CPT/HCPCS: 72100

== ENCOUNTER 2019-05-18 12:32 | Emergency (ER) | payer MEDICARE ==
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
== END 2019-05-18 14:18 | disposition home or self-care (01) ==
LOC: ERS 12:32
DX: S39.012A Strain of muscle, fascia and tendon of lower back, initial encounter (principal); B35.4 Tinea corporis; R21 Rash and other nonspecific skin eruption; E78.00 Pure hypercholesterolemia, unspecified; I25.2 Old myocardial infarction; F41.9 Anxiety disorder, unspecified; V43.62XA Car passenger injured in collision with other type car in traffic accident, initial encounter
CPT/HCPCS: 72100

== ENCOUNTER 2021-03-08 10:38 | Emergency (ER) | payer OTHER, MEDICARE | END 2021-03-08 11:42 | disposition home or self-care (01) | LOC: ERS 10:38 | DX: R04.0 Epistaxis (principal); R51.9 Headache, unspecified; M25.561 Pain in right knee; I25.2 Old myocardial infarction; E78.00 Pure hypercholesterolemia, unspecified; Z79.899 Other long term (current) drug therapy; Z79.82 Long term (current) use of aspirin; W01.0XXA Fall on same level from slipping, tripping and stumbling without subsequent striking against object, initial encounter | CPT/HCPCS: 70486 ==

== ENCOUNTER 2021-11-15 15:03 | Outpatient (CLI) | payer MEDICARE, OTHER | END 2021-11-15 15:04 | disposition home or self-care (01) | LOC: BICRAD 15:03 | PROVIDERS: ATTEND Specialist | DX: R07.9 Chest pain, unspecified (principal); S43.034A Inferior dislocation of right humerus, initial encounter; W19.XXXD Unspecified fall, subsequent encounter | CPT/HCPCS: 71046 ==

== ENCOUNTER 2021-11-16 10:51 | Outpatient (CLI) | payer OTHER | END 2021-11-16 10:52 | disposition home or self-care (01) | LOC: BICRAD 10:51 | PROVIDERS: ATTEND Specialist | DX: S43.084A Other dislocation of right shoulder joint, initial encounter (principal) ==

== ENCOUNTER 2021-11-18 10:54 | Outpatient (CLI) | payer OTHER | END 2021-11-18 10:55 | disposition home or self-care (01) | LOC: BICRAD 10:54 | PROVIDERS: ATTEND Specialist | DX: M25.511 Pain in right shoulder (principal) ==

== ENCOUNTER 2021-11-25 09:32 | Outpatient (CLI) | payer OTHER | END 2021-11-25 09:33 | disposition home or self-care (01) | LOC: BICMAMMO 09:32 | PROVIDERS: ATTEND Specialist | DX: Z12.31 Encounter for screening mammogram for malignant neoplasm of breast (principal); M85.9 Disorder of bone density and structure, unspecified; M81.0 Age-related osteoporosis without current pathological fracture; Z91.89 Other specified personal risk factors, not elsewhere classified | CPT/HCPCS: 77063; 77067; 77080 ==

== ENCOUNTER 2021-12-07 14:21 | Outpatient (CLI) | payer OTHER | END 2021-12-07 14:22 | disposition home or self-care (01) | LOC: BICRAD 14:21 | PROVIDERS: ATTEND Specialist | DX: M79.672 Pain in left foot (principal) ==

== ENCOUNTER 2022-05-23 13:00 | Outpatient (CLI) | payer OTHER | END 2022-05-23 13:01 | disposition home or self-care (01) | LOC: BICRAD 13:00 | PROVIDERS: ATTEND Podiatrist | DX: M79.672 Pain in left foot (principal); M19.072 Primary osteoarthritis, left ankle and foot ==

== ENCOUNTER 2023-11-05 10:31 | Outpatient (CLI) | payer MEDICARE, OTHER | END 2023-11-05 10:32 | disposition home or self-care (01) | LOC: BICMAMMO 10:31 | PROVIDERS: ATTEND Specialist | DX: Z12.31 Encounter for screening mammogram for malignant neoplasm of breast (principal); M85.9 Disorder of bone density and structure, unspecified; M81.0 Age-related osteoporosis without current pathological fracture; Z91.89 Other specified personal risk factors, not elsewhere classified | CPT/HCPCS: 77063; 77067; 77080 ==

== ENCOUNTER 2024-03-17 10:47 | Outpatient (CLI) | payer OTHER | END 2024-03-17 10:48 | disposition home or self-care (01) | LOC: BICULT 10:47 | PROVIDERS: ATTEND Specialist | DX: R49.0 Dysphonia (principal); E04.1 Nontoxic single thyroid nodule | CPT/HCPCS: 76536 ==

== ENCOUNTER 2024-12-19 12:39 | Outpatient (CLI) | payer OTHER | END 2024-12-19 12:40 | disposition home or self-care (01) | LOC: BICMAMMO 12:39 | PROVIDERS: ATTEND Specialist | DX: Z12.31 Encounter for screening mammogram for malignant neoplasm of breast (principal); M81.0 Age-related osteoporosis without current pathological fracture; Z91.89 Other specified personal risk factors, not elsewhere classified | CPT/HCPCS: 77063; 77067; 77080 ==